=== PATIENT | male | born 1995 | race Two or more races ===

== ENCOUNTER 2024-11-01 09:47 | Emergency (ER) | payer MEDICAID ==
[~2024-11-01] VITALS: Ht 165.1 cm; Wt 78.5 kg
[2024-11-01 09:52] VITALS: BP 131/72; TEMP 97.9; O2SAT 100
[2024-11-01] MEDS ORDERED: AMOX-430 PO (10:05)
[2024-11-01] MEDS: BACI/NEOM/POLY B OINT PKT 1 UDPKT PACKET TP ONE (10:14)
== END 2024-11-01 10:17 | disposition home or self-care (01) ==
LOC: ER 09:53
DX: S41.032A Puncture wound without foreign body of left shoulder, initial encounter (principal); Z60.2 Problems related to living alone; Y04.1XXA Assault by human bite, initial encounter; Y93.89 Activity, other specified; Y92.89 Other specified places as the place of occurrence of the external cause; Y99.8 Other external cause status